=== PATIENT | female | born 1970 | race Caucasian/White ===

== ENCOUNTER 2017-02-05 16:25 | Inpatient (IN) | payer OTHER ==
[2017-02-05] MEDS ORDERED: IOPAMIDOL 300 (61%) 100 ML VIAL IV ONE (16:26)
[2017-02-05 16:59] LABS: URINE BILIRUBIN NEGATIVE (NEGATIVE); URINE BLOOD 3+ (NEGATIVE); URINE GLUCOSE (UA) NEGATIVE (NEGATIVE); URINE LEUKOCYTE ESTERASE 2+ (NEGATIVE); URINE NITRITE POSITIVE (NEGATIVE); URINE PROTEIN 2+ (NEGATIVE); URINE UROBILINOGEN NORMAL (0-1 mg/dl)
[2017-02-05 17:00] LABS: URINE APPEARANCE CLOUDY; URINE COLOR YELLOW
[2017-02-05 17:10] LABS: URINE BACTERIA 3+; URINE EPITHELIAL CELLS 0-2 /hpf; URINE WBC >100 /hpf
[2017-02-05 17:25] LABS: HCG,QUALITATIVE URINE NEGATIVE
[2017-02-05] MEDS ORDERED: LACTATED RINGERS 1,000 ML ONE ×2 (17:48→19:24)
[2017-02-05] MEDS ORDERED: MORPHINE SULFATE 4 MG/ML SYRINGE ONE ×2 (17:48→20:08)
[2017-02-05] MEDS ORDERED: CEFTRIAXONE 1 GRAM DUPLEX 50 ML IV ONE ×2 (17:48→19:34)
[2017-02-05 17:54] LABS: ABSOLUTE NEUTROPHIL COUNT 7.1 K/mm3 (1.8-7.7); BASO % 0.2 % (0.2-1.0); EOS # 0.1 (0.0-0.5); EOS % 0.7 % (0.9-2.9); HEMATOCRIT 34.5 % (37.0-47.0); HEMOGLOBIN 12.2 gm/l (12.0-16.0); IMM NEUT # 0.1 K/mm3 (0-0.2); IMM NEUT% 0.7 % (0-1); LYMPH # 0.6 (1.0-4.8); LYMPH % 6.9 % (15-45); MEAN CELL VOLUME 86.5 fl (81.0-99.0); MEAN CORPUSCULAR HEMOGLOBIN 30.6 pg (27.0-31.0); MEAN CORPUSCULAR HGB CONC 35.4 g/dl (33.0-37.0); MEAN PLATELET VOLUME 10.2 fl (7.4-10.4); MONO % 11.3 % (4-12); NEUT % 80.2 % (43-75); PLATELET COUNT 190 K/mm3 (130-400); RED CELL DISTRIBUTION WIDTH 11.9 % (11.5-14.5)
[2017-02-05 18:09] LABS: CALCIUM 9.2 mg/dL (8.6-10.3)
--- NOTE | 2017-02-05 18:46 | CT ---
Name: ILIANA MCNULTY Exam: CT abdomen pelvis with contrast Comparison: None History: Left lower quadrant pain and left flank pain. Dysuria. Procedure: Helical CT using multidetector technique was applied to the abdomen and pelvis during intravenous administration of 100 cc Isovue-300. No oral contrast was given per ordering physician. An automated dose reduction technique was used to minimize patient radiation dose. Findings: CT abdomen (contrast enhanced): Lung bases are clear. Heart is not enlarged. There is no pericardial effusion. Fatty changes of liver are present. Gallbladder is not distended. There is no suspicious biliary dilation. Pancreas is normal. Spleen is mildly enlarged. Adrenal glands are normal. Right kidney is unremarkable. There is mild heterogeneous enhancement of the left kidney which is most prominent in the upper pole. There is minimal perinephric stranding. There is no perinephric abscess. Moderate left hydronephrosis and left ureterectasis is present. There is enhancement of the left urothelium. Aorta, IVC and portal vein are normal. Stomach, small bowel and colon are within normal limits. There is a small fat filled umbilical hernia. Regional skeleton is within normal limits. CT pelvis (contrast enhanced): Bladder is partially filled. There is air within the bladder. If there is been no recent instrumentation, consideration should be given to infection with gas-forming organism. In the left ureterovesical junction, there is a 7.8 mm calculus. The left ureter is moderately dilated. The right ureter is normal. Uterus is normal size and midline. A 1.7 cm left ovary and cyst is suspected. The right ovary is normal. There is been prior tubal ligation. There is high density stool within the nondistended sigmoid colon which is likely related to ingestion. There are few mildly prominent loops small bowel which are nonspecific. High density material is noted within an otherwise normal appendix. There is no appendicitis. There is no free air, free fluid or suspicious adenopathy. Impression: 1. 7.8 mm calculus within the left ureterovesical junction causing moderate hydronephrosis and ureterectasis. 2. Urothelial enhancement in the left renal pelvis and left ureter with heterogeneous enhancement of the left kidney especially at the upper pole. Superimposed infection/pyelonephritis is not excluded on this exam. 3. Small air bubbles within the urinary bladder. If there is been no recent instrumentation, consideration should be given to infection with gas-forming organism 4. 1.7 cm left ovarian cyst 5. Prior tubal ligation 6. No appendicitis 7. Fatty changes of the liver Note: The above report was uploaded to [facility]'s electronic medical records system at 1840 hours.
[2017-02-05] MEDS ORDERED: BISACODYL 10 MG SUP PR PRN (20:21)
[2017-02-05] MEDS ORDERED: MENTHOL/CETYLPYRD 1 EACH LOZENGE PO PRN (20:21)
[2017-02-05] MEDS ORDERED: BISACODYL 5 MG TABLET.EC PO PRN (20:21)
[2017-02-05] MEDS ORDERED: BLISTEX LIPSTICK 1 EACH TP PRN (20:21)
[2017-02-05] MEDS ORDERED: SODIUM CHLORIDE 0.9% 100 ML IV PRN (20:21)
[2017-02-05] MEDS ORDERED: ACETAMINOPHEN 325 MG TABLET PO PRN (20:21)
[2017-02-05] MEDS ORDERED: PROPOFOL 20 ML IV ONE (20:22)
[2017-02-05] MEDS ORDERED: ETOMIDATE 2 MG/ML 10ML VIAL IV ONE (20:22)
[2017-02-05] MEDS ORDERED: ONDANSETRON 4 MG/2ML 2 ML VIAL IV PRN ×2 (20:24→22:07)
[2017-02-05] MEDS ORDERED: SUCCINYLCHOLINE CHL 20 MG/ML DOSE ONE (20:25)
[2017-02-05] MEDS ORDERED: D5NS with 20mEq KCL 1,000 ML IV SCH (20:30)
[2017-02-05] MEDS ORDERED: MIDAZOLAM HCL 1 MG/ML 2ML VIAL ONE (20:34)
[2017-02-05] MEDS ORDERED: FENTANYL 100 MCG/2 ML VIAL ONE ×3 (20:34→22:20)
[2017-02-05] MEDS ORDERED: IOPAMIDOL 300 (61%) 30 ML SDV ONE (20:36)
[2017-02-05] MEDS ORDERED: LIDOCAINE 2% (MULTI DOSE) 10 ML VIAL ONE (20:36)
[2017-02-05] MEDS ORDERED: SODIUM CHLORIDE 0.9% 1,000 ML IV SCH (21:15)
[2017-02-05] MEDS ORDERED: POTASSIUM CHLORIDE 40 MEQ in SODIUM CHLORIDE 0.9% 180 ML IV ONE (22:00)
[2017-02-05] MEDS ORDERED: POTASSIUM CHLORIDE 40 MEQ in SODIUM CHLORIDE 0.9% 500 ML IV ONE (22:00)
[2017-02-05] MEDS ORDERED: ATROPINE SULFATE 0.4 MG/1 ML VIAL IV PRN (22:07)
[2017-02-05] MEDS ORDERED: PROMETHAZINE HCL 25 MG/ML VIAL IM PRN (22:07)
[2017-02-05] MEDS ORDERED: MEPERIDINE 25 MG/ML SYRINGE IV PRN (22:07)
[2017-02-05] MEDS ORDERED: HYDRALAZINE HCL 20 MG/1 ML VIAL IV PRN (22:07)
[2017-02-05] MEDS ORDERED: HYDROMORPHONE HCL 1 MG/ML SYRINGE IV PRN (22:07)
[2017-02-05] MEDS ORDERED: LABETALOL HCL 5 MG/ML 20ML VIAL IV PRN (22:07)
[2017-02-05] MEDS ORDERED: NALOXONE HCL 0.4 MG/ML VIAL IV PRN (22:07)
[2017-02-05] MEDS ORDERED: LACTATED RINGERS 1,000 ML IV SCH (22:15)
[2017-02-05] MEDS: FENTANYL 100 MCG/2 ML VIAL IV PRN ×2 (22:22→22:30)
[2017-02-05] MEDS: SODIUM CHLORIDE 0.9% 1,000 ML IV SCH ×2 (23:07→23:10)
[2017-02-05] MEDS ORDERED: PUMP TUBING ONE (23:25)
[2017-02-05] MEDS ORDERED: POTASSIUM CHLORIDE 20MEQ/100ML 0 ML IV ONE (23:30)
[2017-02-06] MEDS ORDERED: SODIUM CHLOR 0.9% w 40mEq KCL 1,000 ML IV SCH (00:09)
[2017-02-06] MEDS: ZOLPIDEM TARTRATE 5 MG TABLET PO PRN ×2 (00:45→21:35)
[2017-02-06] MEDS ORDERED: POTASSIUM CHLORIDE 10MEQ/100ML 100 ML IV SCH (01:00)
[2017-02-06] MEDS ORDERED: SODIUM CHLOR 0.9% w 40mEq KCL 1,000 ML ONE ×2 (01:00)
[2017-02-06] MEDS: MORPHINE SULFATE 4 MG/ML SYRINGE IV PRN ×5 (04:52→21:34)
[2017-02-06 05:34] LABS: ABSOLUTE NEUTROPHIL COUNT 6.8 K/mm3 (1.8-7.7); BASO % 0.3 % (0.2-1.0); EOS % 0.1 % (0.9-2.9); HEMOGLOBIN 11.4 gm/l (12.0-16.0); IMM NEUT # 0.1 K/mm3 (0-0.2); IMM NEUT% 0.8 % (0-1); LYMPH # 0.5 (1.0-4.8); MEAN CELL VOLUME 89.4 fl (81.0-99.0); MEAN CORPUSCULAR HEMOGLOBIN 30.9 pg (27.0-31.0); MEAN CORPUSCULAR HGB CONC 34.5 g/dl (33.0-37.0); MEAN PLATELET VOLUME 10.2 fl (7.4-10.4); MONO # 0.6 (0.0-0.8); MONO % 7.4 % (4-12); NEUT % 85.4 % (43-75); PLATELET COUNT 181 K/mm3 (130-400); RED CELL DISTRIBUTION WIDTH 11.9 % (11.5-14.5)
[2017-02-06 05:43] LABS: CALCIUM 8.8 mg/dL (8.6-10.3)
--- NOTE | 2017-02-06 06:35 | HP ---
Dayami Doss [id number] DATE OF ADMISSION: 02/05/2017 CHIEF COMPLAINT: Left abdominal and flank pain. HISTORY OF PRESENT ILLNESS: The patient is a 47-year-old female without prior urologic history who reports approximately 7 days of some urinary symptoms including dysuria, urgency, and frequency who developed worsening feelings of fever, chills, along with a rapid heart rate, and increasing pain. This worsened over the last week until today her ask to take her to the hospital. She reports left sided abdominal pain and on imaging done at the emergency room it shows evidence of hydronephrosis with impacted stone at ureterovesicular junction and urinalysis suggests urinary tract infection. PAST MEDICAL HISTORY: Remarkable for endometriosis. She has had five vaginal births. She has not had any renal or urologic problems in the past. PAST SURGICAL HISTORY: Included an endometrial ablation and a tubal ligation. ALLERGIES: None. MEDICATIONS: 1. Ambien 10 mg at bedtime as needed. 2. She has been taking Motrin a lot recently. 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 She has been for 30 years. Has five kids. She smokes about a quarter of a pack of cigarettes per day. She reports one drink of alcohol every two weeks. She has got a cat. Hobbies including reading, camping, and hiking. No particular judaism affiliation. FAMILY HISTORY: Father no data. Mom is 67 and has a history of kidney stones, ovarian cancer, and a brain tumor, along with coronary artery disease for which she uses nitroglycerin. No family history of inflammatory bowel disease or renal disease otherwise. REVIEW OF SYSTEMS: Eyes, ears, nose, and throat have been okay. No respiratory complaints. Heart has been somewhat rapid just recently. She has not had any syncope or other symptoms. She has had abdominal discomfort and has had decreased appetite recently. Her last meal was this morning about 9:00. She has not had constipation or diarrhea. She has had some dysuria, frequency, and urgency, but no hematuria. She has some mild spotting of her menses since the ablation, but no recent changes. She has had no rashes. No central nervous system abnormalities or complaints. PHYSICAL EXAMINATION: GENERAL: Nontoxic young adult female [id number]. VITAL SIGNS: At 1940 show a blood pressure 112/68, heart rate 112, respirations 16, 98% saturation on room air, temperature 100.8 rectally. HEENT: Head is normocephalic, atraumatic. Eyes are unremarkable. Ears are normal. Nose is normal. Dentition is only fair with a number of missing molars. NECK: Supple. No jugular venous distention. LUNGS: Clear to auscultation bilaterally. HEART: Slightly tachycardic, but regular. No murmurs noted. ABDOMEN: Uncomfortable to palpate. On the left side of the abdomen toward the level of the umbilicus and into the left lower quadrant some mild CVA tenderness is noted to percussion. Bowel sounds are quiet, but there is no rebound, no guarding, no rashes, no scarring noted. EXTREMITIES: Legs, no clubbing, cyanosis, or edema. Capillary refill slightly slow on the feet about 4 seconds. Some calluses noted on the feet. Hands are unremarkable with good refill less than 3 seconds. Pulses are good. NEURO: Patient is alert and answers appropriately. She is ambulatory. LABORATORY: White count 8.9, hemoglobin 12.2, platelets 190. Lactate 0.6. Sodium 129, potassium 3.1, chloride 99, CO2 20, BUN 26, creatinine 1.9, glucose 147, calcium 9.2. Urinalysis specific gravity of 1.010, 2+ protein, positive nitrite, 2+ leukocyte esterase, 5 to 10 red cells, greater than 100 white cells, 3+ bacteria. HCG is negative. Gen probe is pending. DIAGNOSTICS: CT shows a 7.8 mm calculus within the left ureterovesicular junction causing moderate hydronephrosis and ureteroectasis, urothelial enhancement in the left renal pelvis and left ureter with heterogeneous enhancement of the left kidney especially at the upper pole, superimposed infection or pyelonephritis not excluded, small air bubbles within the urinary bladder, 1.7 cm left ovarian cyst, prior tubal ligation, no appendicitis, and fatty changes of the liver. ASSESSMENT AND PLAN: 1. Left sided pyelonephritis with impacted stone and hydronephrosis. Due to unspecified bacteria cultures are pending. Patient started on Rocephin given in the emergency room and await cultures. Plan IV fluids and appreciate urologic care for anticipated stone removal tonight. 2. Acute kidney injury suspect secondary to dehydration and nonsteriodal use. Plan IV fluids and we will be rechecking BUN and creatinine in the morning. 3. Sepsis due to pyelonephritis with normal lactate. We will continue with fluid administration and monitor vital signs. 4. Venous thrombosis prophylaxis. Anticipate mechanical treatment and early ambulation. JOB: [id number] CC: Dr. Yudith Major
--- NOTE | 2017-02-06 07:34 | RAD ---
ZAKIA for CATHETER/TUBE PLCMT HISTORY: Intraoperative fluoroscopy COMPARISONS: CT abdomen and pelvis earlier on the same day FINDINGS: 3 overhead fluoroscopic images are provided for review. These images demonstrate a double ended pigtail catheter within the left ureter. Tubal ligation clips are present in the pelvis. Fluoroscopy time: 16.3 seconds IMPRESSION: Intraoperative fluoroscopy as above. Please see urologist note regarding the procedure for further details.
--- NOTE | 2017-02-06 08:47 | PDOC43 ---
- Subjective Chief Complaint: Pyelo, stone (now removed) Nontoxic female, feeling much better. Ate breakfast. No new c/o. Le out. - Objective Vital Signs Temperature 97.5 F 02/06/17 07:00 Pulse Rate 85 02/06/17 07:00 Respiratory Rate 20 02/06/17 07:00 Blood Pressure 90/59 02/06/17 07:00 O2 Saturation by Pulse Oximetry 97 02/06/17 07:00 Oxygen Delivery Method Room Air Oxygen Flow Rate 0 Vital Signs Last 12 Hours Temp Pulse Resp BP Pulse Ox 02/06/17 07:00 97.5 F 85 20 90/59 97 02/06/17 04:14 97.7 F 84 20 92/59 96 02/06/17 03:55 20 02/06/17 03:14 93 98/64 96 02/06/17 02:14 93 92/58 95 02/06/17 01:14 97 97/57 95 02/06/17 00:54 91 91/54 95 02/06/17 00:30 20 02/06/17 00:24 87 98/59 95 02/05/17 23:54 88 100/61 96 02/05/17 23:45 88 92/63 95 02/05/17 23:30 90 90/58 95 02/05/17 23:15 89 104/59 93 02/05/17 23:01 96 100/61 95 02/05/17 22:57 84 152/98 02/05/17 22:45 97.3 F 93 18 101/60 95 Intake and Output 02/04/17 02/05/17 02/06/17 23:59 23:59 23:59 Intake Total 360 Output Total 1450 Balance -1090 General: Alert, Cooperative, No Acute Distress HEENT: Atraumatic Lungs: Clear to Auscultation Bilaterally Cardiovascular: Regular Rate and Rhythm Abdomen: Soft, Tenderness (mild tenderness LLQ), Normal Bowel Sounds, Non- Distended Extremities: No Edema Skin: Normal Color Neurological: Normal Speech Psych/Mental Status: Normal Affect, Normal Mood Laboratory 02/06/17 05:15 02/06/17 05:15 02/06/17 05:15 RBC 3.69 L Estimated GFR 40 L Current Medications: Current meds reviewed in EMR. Active Medications Acetaminophen (Tylenol) 650 mg PO Q6H PRN PRN Reason: Pain or Temperature > 100.5 F Benzocaine/Menthol (Cepacol) 1 each PO PRN PRN PRN Reason: Sore Throat Last Admin: 02/06/17 00:45 Dose: 1 each Bisacodyl (Dulcolax) 10 mg MN DAILY PRN PRN Reason: Constipation Bisacodyl (Dulcolax) 5 mg PO DAILY PRN PRN Reason: Constipation Sodium Chloride (Sodium Chloride 0.9%) 100 mls @ 25 mls/hr IV PRN PRN PRN Reason: Flush Ceftriaxone Sodium/Dextrose (Rocephin 2 Gram Premix) 50 mls @ 100 mls/hr IV Q24H DANITA Morphine Sulfate (Morphine Sulfate) 4 mg IV Q1H PRN PRN Reason: Pain Last Admin: 02/06/17 07:35 Dose: 4 mg Ondansetron HCl (Zofran) 4 mg IV Q4H PRN PRN Reason: Nausea/Vomiting Petrolatum/Paraffin/Mineral Oil (Blistex) 1 each TP PRN PRN PRN Reason: Dry and/or chapped lips Sodium Chloride (Normal Saline 10ml Flush) 10 - 50 ml IV PRN PRN PRN Reason: IV Flush Last Admin: 02/06/17 07:36 Dose: 10 ml Sodium Chloride (Normal Saline 10ml Flush) 10 ml IV Q8HR DANITA Last Admin: 02/06/17 02:01 Dose: Not Given Zolpidem Tartrate (Ambien) 10 mg PO BEDTIME PRN PRN Reason: Insomnia Last Admin: 02/06/17 00:45 Dose: 10 mg - Problems: Assessment/Plan (1) Hydronephrosis with obstructing calculus Status: ResolvedAssessment/Plan: Stone out now, appreciate urologic care. Stent in, anticipate removal in 10-14 d. Anticipate DC to home later today. (2) Pyelonephritis Status: AcuteAssessment/Plan: Bacterial, GNR growing in urine culture. Anticipate DC to home with outpt follow up on culture. Anticipate DC on Levaquin x 14 d (3) Sepsis Qualifiers: Sepsis type: sepsis due to unspecified organism Qualifier Code: (A41.9 ) Sepsis, unspecified organism Status: AcuteAssessment/Plan: due to GNR on pyelonephritis. VS improved. (4) Smoking Status: ChronicAssessment/Plan: encouraged quitting. VTE Prophylaxis: Anticipate DC to home later today. Disposition: anticipate return to home today.
[2017-02-06] MEDS: HYDROcodone/ACETAM 7.5/325MG TABLET PO PRN ×4 (09:03→18:29)
[2017-02-06 10:03] VITALS: BMI 24.9
--- NOTE | 2017-02-06 10:59 | DS ---
Dayami Doss [id number] DATE OF ADMISSION: 02/05/2017 DATE OF DISCHARGE: 02/06/2017 DISCHARGE DIAGNOSES: 1. Acute pyelonephritis, left sided. 2. A 7.8 mm calculus at left ureterovesicular junction causing moderate hydronephrosis, now removed. 3. A 1.7 cm left ovarian cyst seen on CT. 4. Acute kidney injury attributed to illness and antiinflammatory use with creatinine improving from 1.9 on admission down to 1.4 with hydration. 5. History of smoking. 6. Sepsis due to pyelonephritis, normal lactate. REASON FOR ADMISSION: The patient is a 47-year-old female without prior urologic history who reports 7 days of urinary symptoms with dysuria, urgency, and frequency who then developed worsening fever, chills, rapid heart rate, and increasing pain. This increased until her asked to take her to the hospital. In the emergency room, a stone at the ureterovesicular junction was noted along with pyelonephritis suspected changes on CT and urinalysis suggested urinary tract infection. Patient received ceftriaxone 2 gm in the emergency room and Dr. Major was consulted. Patient underwent stone removal with stent placement and by the morning of 02/06/2017 patient was feeling much better. Her white count interestingly was not particularly elevated being 8.9 on admission and 8.0 on the 4th. She had a mildest drop in her hemoglobin from 12.2 to 11.4 with the hydration she received. Her lactate was 0.6 on admission. Her sodium as 129 on admission, potassium 3.1 on admission. She did receive a potassium dose. Her BUN was 26 and creatinine 1.9 on admission. On 02/06/2017 her sodium was 136, potassium 4.2, BUN 19, creatinine 1.4. Glucose did jump to 237, so elevated glucose noted. Her HCG was negative. Her Gen probe results are still pending. The morning of 02/06/2017 she was feeling much better. Her temperature remained afebrile her entire stay at 97.5, pulse was 85, blood pressure 90/59, 97% on room air, respirations 20. She was switched to oral pain medicines and is anticipated to be discharged on the afternoon of 02/06/2017. DISCHARGE MEDICATIONS: Will be: 1. Hydrocodone 7.5/325 one to two by mouth every 4 hours as needed, dispensed #24. 2. Levofloxacin 750 mg by mouth daily for 14 days. 3. Ambien 10 mg at bedtime as needed. FOLLOW UP: She is requested to follow up with Dr. Major in approximately 10 days for stent removal. She has a follow up appointment with Dr. Yudith Francis on 02/12/[address] Francis is requested to check on the urine cultures to verify antibiotic adequacy. JOB: [id number] CC: Dr. Yudith Major
[2017-02-06 14:48] LABS: CHLAMYDIA BD Negative (Negative); N.GONORRHOEAE BD Negative (Negative); SOURCE Urine (())
--- NOTE | 2017-02-06 15:29 | OP ---
ILIANA MCNULTY [id number] DATE OF OPERATION: February 05, 2017 SURGEON: Cordell Major M.D. OTOLOGIST: None. ANESTHESIA: General. PREOPERATIVE DIAGNOSIS: Obstructing left distal ureteral calculus with pyelonephritis. POSTOPERATIVE DIAGNOSIS: Obstructing left distal ureteral calculus with pyelonephritis. PROCEDURE: 1. CYSTOSCOPY. 2. LEFT URETEROSCOPIC STONE RETRIEVAL. 3. PLACEMENT OF A LEFT URETERAL STENT. SPECIMENS: Left ureteral calculus for stone analysis. INDICATIONS: The patient is a 47-year-old woman who has been struggling with intermittent left-sided flank pain since approximately six days ago, progressing intermittent low grade fevers, chills, and tachycardia. She presented to the emergency room today and appears to have infected urine, elevated creatinine, continue flank pain, and distinct tachycardia. She is being taken to the operating room urgently for relief of her left ureteral obstruction. She has been treated with 2 grams of intravenous ceftriaxone already. FINDINGS: The urethra appeared normal. There is considerable amount of superficial debris in the bladder. The left ureteropelvic junction is mounded up and the tip of the stone could be seen just inside the orifice. We were able to push it slightly back to where the ureter was more dilated, engage in a basket and retrieve it intact. PROCEDURE: The patient was identified and brought to the operating room where general anesthesia was induced supine. She was then placed in the dorsal lithotomy position and the genital region was prepped and draped sterilely. A 21 Filipino rigid cystoscope was introduced with saline as an irrigant. Findings are reported above. Once we identified the left ureter and assessed the situation described above, we passed a hybrid wire alongside the stone up to the level of the kidney and removed the cystoscope. A semi-rigid ureteroscope was then introduced with saline as an irrigant, and we very gently negotiated it into the distal ureter and pushed stone back slightly to where the ureter was somewhat dilated. At this level, we were able to engage it in an open ended basket firmly enough to be able to remove it from the ureter and deliver it through the urethra. That completed, we returned the ureteroscope to the distal ureter on the left and checked for any further stone debris. Finding none, we back-threaded the wire through the cystoscope, and then passed a 24 cm Polaris type stent up the left ureter. Its position was confirmed fluoroscopically after the wire was removed. Finally a 15 Filipino Banda catheter was passed and left to gravity drainage for temporary observation of hematuria. Estimated blood loss was less than 10 mL. No early complications. Patient tolerated the procedure well, but will remain in the hospital under care of the hospitalist for pyelonephritis at least until we ascertain antibiotic sensitivities. cc: Cordell Major M.D. Yudith Francis M.D.
[2017-02-06] MEDS ORDERED: INSULIN ASPART (DOSE) 100 UNITS/1 ML SUB-Q PRN (17:29)
[2017-02-06] MEDS ORDERED: CEFTRIAXONE 2 GRAM DUPLEX 50 ML IV SCH (20:00)
[2017-02-06] MEDS: DOCUSATE SODIUM 100 MG CAPSULE PO SCH (20:21)
[2017-02-06 21:29] LABS: A1C-GLYCOHEMOGLOBIN 0.3 g/dl; HEMOGLOBIN-GLYCO 11.5 g/dl
[2017-02-07] MEDS: HYDROcodone/ACETAM 7.5/325MG TABLET PO PRN ×3 (03:05→12:34)
[2017-02-07 07:31] VITALS: BP 93/56
[2017-02-07 07:56] LABS: CALCIUM 8.7 mg/dL (8.6-10.3)
[2017-02-07] MEDS: DOCUSATE SODIUM 100 MG CAPSULE PO SCH (08:13)
[2017-02-07] MEDS: POTASSIUM CHLORIDE 20 MEQ TAB.PRT.SR PO SCH ×2 (08:36→10:34)
[2017-02-07] MEDS ORDERED: SULFAMETHOXAZOLE 800 MG/TRIMETHOPRIM 160 MG TABLET PO SCH (10:45)
[2017-02-07] MEDS ORDERED: LEVOFLOXACIN 750 MG TABLET PO ONE (10:48)
--- NOTE | 2017-02-07 12:10 | DS ---
ADDENDUM Dayami Doss [id number] DATE OF ADMISSION: 02/05/2017 AMENDED DATE OF DISCHARGE: 02/07/2017 DISCHARGE DIAGNOSES: 1. Acute left sided pyelonephritis. 2. A 7.8 mm calculus at the left ureterovesicular junction causing obstruction with moderate hydronephrosis. 3. A 1.7 cm left ovarian cyst incidentally found on CT. 4. Acute kidney injury due to sepsis, antiinflammatory use, and dehydration with creatinine up to 1.9 initially on admission and improved to 1.0 on the day of discharge. 5. Mild hypokalemia thought to be due to urinary losses, replaced. 6. History of smoking. 7. Sepsis due to pyelonephritis with a normal lactate. Please refer to Dr. Rojas's discharge summary, but add under the hospital course that the patient was not discharge on February 06 as initially planned due to some persistent hyperglycemia. She had blood sugars as high as 260 during her stay. She stayed an extra night . Had a hemoglobin A1c level measured which was normal at 4.6. She received diabetic education for glucose intolerance and it was identified she was drinking 4 to 6 liters of soda a day. Her urine culture did end up growing Klebsiella pneumoniae which was sensitive to cephalosporins and fluoroquinolones. She remained afebrile during her stay and was felt medically stable for discharge on February 07. DISCHARGE MEDICATIONS: Remain unchanged. FOLLOW UP: As documented in the discharge summary for Dr. Rojas performed yesterday with the addition that she has an appointment with Dr. Cordell Major scheduled on February 13 at 1:30 p.m. for stent removal. JOB: [id number] CC: Dr. Moriah Francis
--- NOTE | 2017-02-07 12:42 | SURGPATH ---
[facility] [address] [place] [id number] Patient Name: ILIANA MCNULTY MR#: [id number] : 1970 Gender: F Specimen #: [id number] Collected: 02/05/2017 Received: 02/07/2017 Reported: 02/07/2017 Submitting Phys: DOV WHITLOCK Copy To Phys: [facility] GUILLEN Clinical History / Pre-Operative Diagnosis: URETERAL STONE Specimen Source / Surgical Procedure Performed: URETERAL STONE Interpretation: URETERAL STONE, REMOVAL: - UROLITHIASIS Electronically Signed Out Les Kelly M.D. Gross Description: The specimen is received fresh labeled with the patient's name and "ureteral stone". A finely nodular irregular garza calculus is 0.6 x 0.5 x 0.3 cm. The specimen will be submitted for chemical analysis. Terry Reinoso PMami. 1: [id number] N20.1
== END 2017-02-07 13:20 | disposition home or self-care (01) | DRG 854 ==
LOC: ED 16:25 → SDC 19:50 → MS 23:15
PROVIDERS: ADMIT Urology; ATTEND Urology
PROC: 0TC78ZZ Extirpation of Matter from Left Ureter, Via Natural or Artificial Opening Endoscopic (ICD-10-PCS; principal; 2017-02-05)
PROC: 0T778DZ Dilation of Left Ureter with Intraluminal Device, Via Natural or Artificial Opening Endoscopic (ICD-10-PCS; 2017-02-05)
DX: A41.9 Sepsis, unspecified organism (principal); N13.2 Hydronephrosis with renal and ureteral calculous obstruction; N17.9 Acute kidney failure, unspecified; E86.0 Dehydration; N83.202 Unspecified ovarian cyst, left side; F17.210 Nicotine dependence, cigarettes, uncomplicated; E87.6 Hypokalemia